=== PATIENT | male | born 1970 | race Two or more races ===

== ENCOUNTER 2019-07-19 14:06 | Outpatient (CLI) | payer OTHER | END 2019-07-19 14:12 | disposition home or self-care (01) | LOC: LAB 14:06 | DX: L02.411 Cutaneous abscess of right axilla (principal) ==

== ENCOUNTER 2021-08-19 06:00 | Day surgery (SDC) | payer OTHER ==
[~2021-08-19 06:00] MED LIST: RAYOS5 MG PO
[2021-08-19] MEDS ORDERED: NEURONTIN300 MG PO (15:06)
[2021-08-19] MEDS ORDERED: PERCOCET 5-3251 EACH PO (15:06)
[2021-08-19] MEDS ORDERED: KETO10TA2 PO (15:07)
[2021-08-19] MEDS ORDERED: AMOX1TAB5 PO (15:07)
== END 2021-08-19 19:30 | disposition home or self-care (01) ==
LOC: CIR.AMB 06:00
PROVIDERS: ATTEND Surgery
DX: L05.01 Pilonidal cyst with abscess (principal); K62.0 Anal polyp; Z20.822 Contact with and (suspected) exposure to COVID-19

== ENCOUNTER 2022-06-16 05:55 | Day surgery (SDC) | payer OTHER ==
[~2022-06-16] VITALS: Ht 177.8 cm; Wt 83.9 kg
[~2022-06-16 05:55] MED LIST changes: +AMOX1TAB5 PO; +KETO10TA2 PO; +NEURONTIN300 MG PO; +PERCOCET 5-3251 EACH PO
[2022-06-16] MEDS ORDERED: ULTRAM50 MG PO (12:29)
[2022-06-16] MEDS ORDERED: NEURONTIN300 MG PO (12:30)
[2022-06-16] MEDS ORDERED: BACTRIM DS TAB1 EACH PO (12:30)
== END 2022-06-16 14:45 | disposition home or self-care (01) ==
LOC: CIR.AMB 05:55
PROVIDERS: ATTEND Surgery
DX: L05.01 Pilonidal cyst with abscess (principal); K50.90 Crohn's disease, unspecified, without complications; Z20.822 Contact with and (suspected) exposure to COVID-19; K21.9 Gastro-esophageal reflux disease without esophagitis; K60.3 Anal fistula